=== PATIENT | female | born 1955 | race Asian ===

== ENCOUNTER 2016-11-12 13:01 | Emergency (ER) | payer SELFPAY ==
[~2016-11-12] VITALS: Ht 162.6 cm; Wt 51.0 kg
[~2016-11-12 13:01] MED LIST: Cipro PO; Coreg PO; NOHOMEMEDS; Zestoretic,Prinzide PO
[2016-11-12 14:58] LABS: HEMATOCRIT 40.6 % (36.0-46.0); MCH 31.6 PG (29.0-34.0); MCV 90.2 FL (83-99); MEAN PLAT.VOLUME 9.3 uM^3 (9.5-12.4); PLATELET COUNT 269 K/uL (156-360); RBC DIS.WIDTH-CV 12.2 % (11.8-14.6); WHITE BLOOD COUNT 11.6 K/uL (4.1-10.2)
[2016-11-12 15:09] LABS: CHLORIDE 103 mEq/L (99-109); POTASSIUM 3.3 mEq/L (3.7-5.4); SODIUM 139 mEq/L (136-147)
[2016-11-12 15:10] LABS: GLUCOSE 99 mg/dL (70-99)
[2016-11-12 15:12] LABS: ANION GAP 13 MEQ/L (2-14)
[2016-11-12 15:14] LABS: GFR ESTIMATE (CALCULATED) 38 mL/min/
[2016-11-12 15:15] LABS: UREA NITROGEN (BUN) 31 mg/dL (9-23)
[2016-11-12] MEDS ORDERED: LISINOPRIL10 MG PO (15:20)
[2016-11-12] MEDS ORDERED: FLEXERIL10 MG PO (15:21)
[2016-11-12] MEDS ORDERED: ULTRAM50 MG PO (15:21)
[2016-11-12 15:37] LABS: C-REACTIVE PROTEIN 1.8 MG/L (0-10); SAMPLE HEMOLYSIS CHECK 0; SAMPLE ICTERIC CHECK 0; SAMPLE LIPEMIA CHECK 0
[2016-11-12 17:03] VITALS: BP 245/118
== END 2016-11-12 17:08 | disposition left against medical advice (07) ==
LOC: EME 13:01
PROVIDERS: Nurse Practitioner Family
DX: S76.011A Strain of muscle, fascia and tendon of right hip, initial encounter (principal); X58.XXXA Exposure to other specified factors, initial encounter; Y93.E9 Activity, other interior property and clothing maintenance; Y99.0 Civilian activity done for income or pay; I16.0 Hypertensive urgency; N28.9 Disorder of kidney and ureter, unspecified; Z91.14 Patient's other noncompliance with medication regimen; F17.200 Nicotine dependence, unspecified, uncomplicated; Z53.20 Procedure and treatment not carried out because of patient's decision for unspecified reasons
CPT/HCPCS: 73502; 73552; 80048; 85027; 86140; 99281; 99282

== ENCOUNTER → 2017-01-05 | Outpatient (CLI) | payer SELFPAY ==
[~2017-01-05] MED LIST changes: +FLEXERIL10 MG PO; +LISINOPRIL10 MG PO; +ULTRAM50 MG PO
== END | disposition home or self-care (01) ==
LOC: EKG 13:00
DX: I51.7 Cardiomegaly (principal); R94.31 Abnormal electrocardiogram [ECG] [EKG]
CPT/HCPCS: 93306

== ENCOUNTER → 2017-01-23 | Outpatient (CLI) | payer SELFPAY | END | disposition home or self-care (01) | LOC: RAD 01-15 10:00 | DX: N28.89 Other specified disorders of kidney and ureter (principal); I10 Essential (primary) hypertension | CPT/HCPCS: 76770; 93975 ==